=== PATIENT | male | born 1960 | race Caucasian/White ===

== ENCOUNTER 2017-07-05 20:34 | Emergency (ER) | payer BC ==
[2017-07-05 20:42] VITALS: BP 143/83
[2017-07-05] MEDS ORDERED: Ketorolac 30 MG/ML SDV IM ONE (20:50)
--- NOTE | 2017-07-05 20:56 | EDM.PDOC ---
ED HPI GENERAL MEDICAL PROBLEM - General Chief Complaint: Back Pain or Injury Stated Complaint: right rib pain Time Seen by Provider: 07/05/17 20:38 Source of Information: Reports: Patient History Limitations: Reports: No Limitations - History of Present Illness INITIAL COMMENTS - FREE TEXT/NARRATIVE: Patient states that he sustained a fall approximately 5 days ago while walking with his crutches. The reason for the patient's purchases he had a knee scope done and it became infected with staph organism resulting in multiple medical management treatments. Patient is currently using crutches to help ambulate. He is walking he miss stepped on Friday and fell landing on his right side back area. Denies hitting his head, losing consciousness, dizzy, or lightheaded. The pains progressively increasing throughout the week he did go the chiropractor on one occasion really manipulated it he states that it did feel better following that after that however he's been placing ice and heat on it with no relief. Patient also has narcotic prescription at home which has not been helping Onset: Sudden Onset Date: 06/30/17 Duration: Getting Worse Severity: Moderate Improves with: Reports: Rest Worsens with: Reports: Movement Context: Reports: Trauma Right Back Pain Score (Numeric/FACES): 6 - Related Data Allergies Allergy/AdvReac Type Severity Reaction Status Date / Time No Known Allergies Allergy Verified 07/05/17 20:38 Home Meds: Home Meds oxyCODONE ER [OxyCONTIN] 10 mg PO Q12HR 07/05/17 [History] Past Medical History HEENT History: Reports: Impaired Vision - Past Surgical History Musculoskeletal Surgical History: Reports: Arthroscopic Knee, Other (See Below) Other Musculoskeletal Surgeries/Procedures:: Patient had a knee scope, got a staph infection. Ongoing problems with the knee. Social & Family History - Tobacco Use Smoking Status *Q: Former Smoker Used Tobacco, but Quit: Yes Month Tobacco Last Used: 18 ED ROS GENERAL - Review of Systems Review Of Systems: See Below Constitutional: Reports: No Symptoms HEENT: Reports: No Symptoms Respiratory: Reports: No Symptoms Cardiovascular: Reports: No Symptoms GI/Abdominal: Reports: No Symptoms Musculoskeletal: Reports: Back Pain, Leg Pain (current staph infection post knee scope on left knee.Limited mobility ), Muscle Pain Skin: Reports: No Symptoms Neurological: Reports: No Symptoms ED EXAM,LOWER BACK PAIN/INJURY - Physical Exam Exam: See Below Exam Limited By: No Limitations General Appearance: Alert, WD/WN, No Apparent Distress Head: Atraumatic, Normocephalic Respiratory/Chest: No Respiratory Distress, Lungs Clear, No Accessory Muscle Use Back Exam: Muscle Spasm, Other (tenderness of the 11th 12 rib right side. No redness, swelling or warmth noted. ) Extremities: Normal Inspection, Normal Range of Motion, Normal Capillary Refill Neurological: Alert, Normal Mood/Affect Skin Exam: Warm, Intact, Normal Color, No Rash Course - Vital Signs Last Recorded V/S: Last Vital Signs Temp 36.5 C 07/05/17 20:38 Pulse 97 07/05/17 20:38 Resp 18 07/05/17 20:38 BP 143/83 H 07/05/17 20:38 Pulse Ox 99 07/05/17 20:38 - Orders/Labs/Meds Orders: Active Orders 24 hr Category Date Time Status Chest 2V [CR] Stat Exams 07/05/17 20:47 Ordered Orphenadrine [Norflex] Med 07/05/17 21:00 Ordered 60 mg IM Q12H Meds: Medications Discontinued Medications Generic Name Dose Route Start Last Admin Trade Name Freq PRN Reason Stop Dose Admin Ketorolac Tromethamine 30 mg 07/05/17 20:50 Toradol IM 07/05/17 20:51 ONETIME ONE Departure - Departure Time of Disposition: 21:19 Disposition: Home, Self-Care 01 Condition: Good Clinical Impression: Back strain Qualifiers: Encounter type: initial encounter Qualified Code(s): S39.012A - Strain of muscle, fascia and tendon of lower back, initial encounter - Discharge Information Instructions: Back Injury Prevention, [id number], Muscle Strain, [id number] - My Orders Last 24 Hours: My Active Orders 07/05/17 20:47 Chest 2V [CR] Stat 07/05/17 21:00 Orphenadrine [Norflex] 60 mg IM Q12H - Assessment/Plan Last 24 Hours: My Active Orders 07/05/17 20:47 Chest 2V [CR] Stat 07/05/17 21:00 Orphenadrine [Norflex] 60 mg IM Q12H
[2017-07-05] MEDS ORDERED: Ketorolac 30 MG/ML SDV ONE (21:03)
[2017-07-05] MEDS ORDERED: Take Home: Cyclobenzaprine 10 MG Tab, 4 Tab Pack PO ONE (21:14)
== END 2017-07-05 21:25 | disposition home or self-care (01) ==
LOC: VM.ED 20:34
DX: S39.012A Strain of muscle, fascia and tendon of lower back, initial encounter (principal); Z98.890 Other specified postprocedural states; Z87.891 Personal history of nicotine dependence; W19.XXXA Unspecified fall, initial encounter
CPT/HCPCS: 71020; 96372; 99283; A9270; J1885; J2360

== ENCOUNTER 2021-02-26 09:22 | Day surgery (SDC) | payer BC ==
[~2021-02-26 09:22] MED LIST: Lactated Ringers 1,000 ML IV SCH
[2021-02-26] MEDS ORDERED: Propofol 200 MG/20 ML SDV ONE (10:04)
[2021-02-26] MEDS ORDERED: fentaNYL 100 MCG/2 ML SDV ONE (10:04)
[2021-02-26 11:35] VITALS: BP 155/83; PULSE 67
--- NOTE | 2021-02-27 07:16 | OR ---
PREOPERATIVE DIAGNOSIS: Dysphagia. POSTOPERATIVE DIAGNOSIS: Dysphagia. PROCEDURE PERFORMED: Esophagogastroduodenoscopy. COMPLICATIONS: None. SPECIMENS: None. ESTIMATED BLOOD LOSS: 5 mL. PROCEDURE IN DETAIL: This was done in the endoscopy suite. Sedation was given per Anesthesia. Scope was introduced into the pharynx, across the esophagus into the stomach. Stomach was insufflated. I went across pylorus into the duodenum. First and second portion of duodenum were normal. Scope was slowly withdrawn and retroflexed. Stomach itself was normal. Scope was slowly withdrawn. Esophagus was normal. No evidence of any stricture or esophagitis present. FINAL DIAGNOSIS: Normal esophagogastroduodenoscopy. BKD: 02/26/2021 11:16:52 MODL: 02/26/2021 16:13:42 /[id number]
== END 2021-02-26 12:20 | disposition home or self-care (01) ==
LOC: VM.SDS 09:22
PROVIDERS: ATTEND Surgery
DX: R13.10 Dysphagia, unspecified (principal); G47.33 Obstructive sleep apnea (adult) (pediatric); I25.10 Atherosclerotic heart disease of native coronary artery without angina pectoris; I25.2 Old myocardial infarction; M19.90 Unspecified osteoarthritis, unspecified site; Z87.891 Personal history of nicotine dependence; Z79.899 Other long term (current) drug therapy
CPT/HCPCS: 00731; J2704; J3010; J7120

== ENCOUNTER → 2022-06-24 | Day surgery (SDC) | payer BC ==
[~2022-06-24] MED LIST changes: +Propofol 200 MG/20 ML SDV ONE; +Sodium Chloride 0.9% 10 ML Syringe FLUSH PRN; +fentaNYL 100 MCG/2 ML SDV ONE
== END ==
LOC: VM.SDS 06:00
PROVIDERS: ATTEND Surgery
DX: R19.5 Other fecal abnormalities (principal); G47.33 Obstructive sleep apnea (adult) (pediatric); K21.9 Gastro-esophageal reflux disease without esophagitis; E78.5 Hyperlipidemia, unspecified; I25.10 Atherosclerotic heart disease of native coronary artery without angina pectoris; I25.2 Old myocardial infarction; Z79.899 Other long term (current) drug therapy; Z87.891 Personal history of nicotine dependence; Z91.09 Other allergy status, other than to drugs and biological substances
CPT/HCPCS: 00811; 45378; J2704; J3010; J7120